=== PATIENT | male | born 1975 | race Two or more races ===

== ENCOUNTER 2019-09-16 07:14 | Emergency (ER) | payer SELFPAY ==
[2019-09-16] MEDS ORDERED: ONDANSETRON HCL INJ/PF 4 MG/2 ML SDV IV ONE (08:25)
[2019-09-16] MEDS ORDERED: MORPHINE SULFATE 10 MG/ML INJ IV ONE (08:25)
[2019-09-16] MEDS ORDERED: KETOROLAC TROMETHAMINE INJ/PF 30 MG/1 ML SDV IV ONE (08:25)
--- NOTE | 2019-09-16 08:25 | ER Document Report ---
ED General - General Chief Complaint: Flank Pain Stated Complaint: LEFT FLANK PAIN Notes: Patient is a 44-year-old male with no reported past medical history who presents to the emergency department with a chief complaint of left flank pain that began 2 nights ago. He states he went to his doctor yesterday where they found blood in his urine, diagnosed with a kidney stone gave him hydrocodone and Phenergan and advised him to report here if no improvement. Patient states he is been taking the medicines and increased his water intake but is had no improv ement of the pain. He states if anything gets worsened. Located in the left mid back and radiates around the left flank. Denies any associated testicular pain or swelling. No scrotal involvement. No penile pain or discharge. Patient is never had any abdominal surgeries. No fevers. He admits to some associated nausea and vomiting. No diarrhea or constipation. - Related Data Allergies/Adverse Reactions: No Known Allergies Allergy (Unverified 09/16/19 07:28) Past Medical History - Social History Smoking Status: Never Smoker Chew tobacco use (# tins/day): No Frequency of alcohol use: None Drug Abuse: None Family History: Reviewed & Not Pertinent Patient has homicidal ideation: No Review of Systems - Review of Systems Constitutional: denies: Fever EENT: denies: Difficulty swallowing Cardiovascular: denies: Chest pain Respiratory: denies: Short of breath Gastrointestinal: Abdominal pain, Nausea, Vomiting. denies: Diarrhea, Constipation Genitourinary: Flank pain Male Genitourinary: denies: Testicular pain Musculoskeletal: Back pain Skin: denies: Change in color Hematologic/Lymphatic: denies: Easy bleeding Neurological/Psychological: denies: Headaches Physical Exam - Vital signs Vitals: Temp Pulse Resp BP Pulse Ox 98.3 F 76 20 155/88 H 98 09/16/19 07:19 09/16/19 07:19 09/16/19 07:19 09/16/19 07:19 09/16/19 07:19 - General General appearance: Appears well, Alert In distress: None - Respiratory Respiratory status: No respiratory distress Chest status: Nontender Breath sounds: Normal Chest palpation: Normal - Cardiovascular Rhythm: Regular Heart sounds: Normal auscultation - Abdominal Inspection: Normal Distension: No distension Bowel sounds: Normal Tenderness: Nontender Organomegaly: No organomegaly - Back Back: CVA tenderness - Left-sided - Neurological Neuro grossly intact: Yes Cognition: Normal Orientation: AAOx4 Gerhard Coma Scale Eye Opening: Spontaneous Gerhard Coma Scale Verbal: Oriented Gerhard Coma Scale Motor: Obeys Commands Gerhard Coma Scale Total: 15 Speech: Normal Sensory: Normal - Psychological Associated symptoms: Normal affect, Normal mood - Skin Skin Temperature: Warm Skin Moisture: Dry Skin Color: Normal Course - Re-evaluation Re-evalutation: 09/16/19 11:15 Patient is a left-sided 2 mm stone in the distal ureter without hydronephrosis or hydroureter. He has no evidence of UTI on the urinalysis however he has an elevated white blood cell count with a left shift. This is likely in relation to the vomiting that was associated with his acute process. Reevaluation of him at this time, he states he feels much better. His creatinine was slightly elevated so he was given a liter normal saline here. He has Joes and Phenergan from his doctor. We will provide Flomax. Encouraged to push clear fluids. Will refer to urology. Counseled him regarding the importance of outpatient follow-up and advised to return here or any ER immediately with any new, persistent or worsening symptoms. They verbalized understood and agreed. - Vital Signs Vital signs: Temp Pulse Resp BP Pulse Ox 98.3 F 76 20 155/88 H 98 09/16/19 07:19 09/16/19 07:19 09/16/19 07:19 09/16/19 07:19 09/16/19 07:19 - Laboratory Result Diagrams: 09/16/19 08:05 09/16/19 08:05 Laboratory results interpreted by me: 09/16/19 09/16/19 09/16/19 08:05 08:05 08:05 WBC 16.1 H Seg Neuts % (Manual) 87 H Lymphocytes % (Manual) 4 L Abs Neuts (Manual) 14.0 H Sodium 129.0 L Chloride 94 L Creatinine 1.53 H Est GFR (MDRD) Non-Af 50 L Glucose 137 H Calcium 8.1 L Urine Glucose (UA) 50 H Urine Ketones TRACE H Discharge - Discharge Clinical Impression: Ureteral stone, Renal colic Condition: Stable Disposition: HOME, SELF-CARE Instructions: Kidney Stone ([facility]) Additional Instructions: Follow-up with your regular doctor in 2 to 3 days for reevaluation. Return here or any ER immediately with any new, persistent or worsening symptoms. Please call the urologist. Prescriptions: Tamsulosin HCl [Flomax 0.4 mg Cap.sr] 0.4 mg PO DAILY #7 cap.sr.24h Referrals: JEANETTE HILARIO MD [NO LOCAL MD] - Follow up as needed
[2019-09-16 08:27] LABS: APPEARANCE,URINE CLEAR; BILIRUBIN,URINE NEGATIVE (NEGATIVE); COLOR,URINE STRAW; GLUCOSE, URINE 50 mg/dL (NEGATIVE); KETONES,URINE TRACE mg/dL (NEGATIVE); LEUKOCYTE ESTERASE,URINE NEGATIVE (NEGATIVE); NITRITE,URINE NEGATIVE (NEGATIVE); PROTEIN,URINE NEGATIVE (NEGATIVE); URINE SPECIFIC GRAVITY 1.009; UROBILINOGEN,URINE NEGATIVE mg/dL (<2.0)
[2019-09-16 08:31] LABS: HEMATOCRIT 42.8 % (37.9-51.0); HEMOGLOBIN 15.1 g/dL (13.5-17.0); MEAN CORPUSCULAR HEMOGLOBIN 32.1 pg (27.0-33.4); MEAN CORPUSCULAR HGB CONC 35.2 g/dL (32.0-36.0); MEAN CORPUSCULAR VOLUME 91 fl (80-97); PLATELET COUNT 190 10^3/uL (150-450); RED BLOOD COUNT 4.69 10^6/uL (4.35-5.55); RED CELL DISTRIBUTION WIDTH 13.6 % (11.5-14.0); WHITE BLOOD COUNT 16.1 10^3/uL (4.0-10.5)
[2019-09-16 08:39] LABS: ALBUMIN 4.1 g/dL (3.5-5.0); ALKALINE PHOSPHATASE 62 U/L (38-126); ANION GAP 7 (5-19); ASPARTATE AMINO TRANSFERASE 35 U/L (17-59); BLOOD UREA NITROGEN 14 mg/dL (7-20); CALCIUM 8.1 mg/dL (8.4-10.2); CARBON DIOXIDE 28 mmol/L (22-30); CHLORIDE 94 mmol/L (98-107); GLUCOSE 137 mg/dL (75-110); TOTAL PROTEIN 6.9 g/dL (6.3-8.2)
[2019-09-16 08:49] LABS: ABSOLUTE MONOCYTES # (MANUAL) 1.1 10^3/uL (0.1-1.4); BASOPHILS % (MANUAL) 0 % (0-2); EOSINOPHILS % (MANUAL) 0 % (0-6); LYMPHOCYTES % (MANUAL) 4 % (13-45); MONOCYTES % (MANUAL) 7 % (3-13); SEGMENTED NEUTROPHILS % (MAN) 87 % (42-78); TOTAL CELLS COUNTED 100
[2019-09-16 08:50] LABS: PLATELET COMMENT ADEQUATE; POLYCHROMASIA SLIGHT
--- NOTE | 2019-09-16 08:55 | RADIOLOGY REPORT (SQ) ---
EXAM DESCRIPTION: CT ABD/PELVIS NO ORAL OR IV IMAGES COMPLETED DATE/TIME: 09/16/2019 8:39 am REASON FOR STUDY: left flank pain COMPARISON: None. TECHNIQUE: CT scan of the abdomen and pelvis performed without intravenous or oral contrast. Images reviewed with lung, soft tissue, and bone windows. Reconstructed coronal and sagittal MPR images revi ewed. All images stored on PACS. All CT scanners at this facility use dose modulation, iterative reconstruction, and/or weight based d osing when appropriate to reduce radiation dose to as low as reasonably achievable (ALARA). [facility]: Dose Right [facility]: CareDose [facility]: Dose Right [facility]: Teradose 4D [facility]: [employer] RADIATION DOSE: CT Rad equipment meets quality standard of care and radiation dose reduction techniq ues were employed. CTDIvol: 9.6 mGy. DLP: 532 mGy-cm.mGy. LIMITATIONS: None. FINDINGS: LOWER CHEST: Mild subsegmental atelectasis/ scar in the right lower lobe. No pleural dise ase. NON-CONTRASTED LIVER, SPLEEN, ADRENALS: Liver looks generally fatty. No focal lesions. Spleen unrem arkable. No adrenal mass. PANCREAS: No masses. No peripancreatic inflammatory changes. GALLBLADDER: No identified stones by CT criteria. No inflammatory changes to suggest cholecystitis. RIGHT KIDNEY AND URETER: No solid masses. No significant calcification. No hydronephrosis or hydroure ter. LEFT KIDNEY AND URETER: Perinephric stranding with mild hydronephrosis. Slightly dilated left ureter throughout with periureteral stranding. There is a 2 mm distal ureteral stone. AORTA AND RETROPERITONEUM: No aneurysm. No retroperitoneal masses or adenopathy. BOWEL AND PERITONEAL CAVITY: No obvious masses or inflammatory changes. No free fluid. APPENDIX: Normal. PELVIS, BLADDER, AND ABDOMINAL WALL:No abnormal masses. No free fluid. Bladder normal. BONES: No significant findings. OTHER: No other significant finding. IMPRESSION: 1. Mild left obstructive uropathy due to a tiny distal ureteral stone measuring close to 2 mm. TECHNICAL DOCUMENTATION: JOB ID: [id number] Quality ID # [id number]: Final reports with documentation of one or more dose reduction techniques (e.g., Au tomated exposure control, adjustment of the mA and/or kV according to patient size, use of iterative reconstruction technique) 2010 [employer]- All Rights Reserved Reading location - IP/workstation name: [email or web address]
[2019-09-16] MEDS ORDERED: NORMAL SALINE 1000 ML 1,000 ML IV ONE (10:47)
[2019-09-16 11:33] VITALS: BP 134/80
== END 2019-09-16 11:32 | disposition home or self-care (01) ==
LOC: ER 07:14
DX: N20.1 Calculus of ureter (principal); R11.2 Nausea with vomiting, unspecified; R10.9 Unspecified abdominal pain; M54.9 Dorsalgia, unspecified; D72.829 Elevated white blood cell count, unspecified
CPT/HCPCS: 99284; 96361; 96374; 96375; 36415; 87086; 83690; 85025; 80053; 81001; 74176; J1885; J2270; J2405; J7030